=== PATIENT | female | born 1970 | race Two or more races ===

== ENCOUNTER 2024-08-12 12:40 | Emergency (ER) | payer OTHER ==
[~2024-08-12] VITALS: Ht 157.5 cm; Wt 113.4 kg
[2024-08-12] MEDS ORDERED: COZAAR50 MG PO (13:00)
[2024-08-12] MEDS ORDERED: NEURONTIN300 MG PO (13:01)
[2024-08-12] MEDS ORDERED: ORPHENADRINE CITRATE 30 MG/ML AMPUL IM ONE (15:45)
[2024-08-12] MEDS ORDERED: KETOROLAC TROMETHAMINE 60 MG VIAL IM ONE (15:45)
[2024-08-12] MEDS ORDERED: NORFLEX100MG PO (18:13)
[2024-08-12] MEDS ORDERED: DICLOFENAC SODI50 MG PO (18:13)
== END 2024-08-12 18:41 ==
LOC: ER 12:42
DX: S14.5XXA Injury of cervical sympathetic nerves, initial encounter (principal); V49.88XA Car occupant (driver) (passenger) injured in other specified transport accidents, initial encounter; Y93.89 Activity, other specified; Y92.89 Other specified places as the place of occurrence of the external cause; Y99.8 Other external cause status; M62.838 Other muscle spasm; M50.30 Other cervical disc degeneration, unspecified cervical region; M54.50 Low back pain, unspecified; I10 Essential (primary) hypertension

== ENCOUNTER → 2025-07-20 | Emergency (ER) | payer OTHER ==
[~2025-07-20] VITALS: Ht 157.5 cm; Wt 115.2 kg
[~2025-07-20] MED LIST: COZAAR50 MG PO; CYCLOBENZAPRINE10 MG PO; DEXAMETHASONE SODIUM PHOSPHATE 4 MG/ML VIAL IM ONE; DEXAMETHASONE SODIUM PHOSPHATE 4 MG/ML VIAL ONE; DICLOFENAC SODI50 MG PO; KETOROLAC TROMETHAMINE 60 MG VIAL IM ONE; NAPROXEN500 MG PO; NEURONTIN300 MG PO; NORFLEX100MG PO; ORPHENADRINE CITRATE 100 MG TABLET PO ONE
== END | disposition home or self-care (01) ==
LOC: ER 10:28
DX: M25.561 Pain in right knee (principal); I10 Essential (primary) hypertension; G62.9 Polyneuropathy, unspecified